=== PATIENT | female | born 1945 | race Caucasian/White ===

== ENCOUNTER 2018-01-20 17:47 | Emergency (ER) | payer MEDICARE, BC ==
[2018-01-20] MEDS ORDERED: Cephalexin CAP* 500 MG PO ONE (20:11)
[2018-01-20 20:14] VITALS: BP 121/58
--- NOTE | 2018-01-20 20:18 | UC ---
Hand/Wrist HPI - HPI Summary HPI Summary: started with pain, swelling and redness on left index finger several days ago. States she has been soakingit in epson salts which initially helped but painand redness worsened the last day. She has a groove on fingernail with a ilya in nailbed for the past year, and occasionally sees some discharge oozing out of it. Denies chills, fever or malaise - History Of Current Complaint Chief Complaint: UCUpperExtremity Stated Complaint: FINGER SORENESS Time Seen by Provider: 01/20/18 19:56 Hx Obtained From: Patient ?: No Onset/Duration: Sudden Onset, Lasting Days Severity Initially: Mild Severity Currently: Moderate Pain Intensity: 5 Character Of Pain: Throbbing Aggravating Factor(s): Movement Alleviating Factor(s): Elevation, Heat Associated Signs And Symptoms: Positive: Swelling, Redness - Allergies/Home Medications Allergies/Adverse Reactions: Allergies Allergy/AdvReac Type Severity Reaction Status Date / Time No Known Allergies Allergy Verified 01/20/18 19:43 PMH/Surg Hx/FS Hx/Imm Hx Previously Healthy: Yes - Surgical History Surgical History: Yes Surgery Procedure, Year, and Place: Right shoulder - Family History Known Family History: Positive: None - Social History Alcohol Use: Occasionally Substance Use Type: None Smoking Status (MU): Never Smoked Tobacco Review of Systems Constitutional: Negative Musculoskeletal: Arthralgia, Edema, Myalgia All Other Systems Reviewed And Are Negative: Yes Physical Exam Triage Information Reviewed: Yes Appearance: Well-Appearing, No Pain Distress, Well-Nourished Vital Signs: Initial Vital Signs Temp 97.9 F 01/20/18 19:40 Pulse 70 01/20/18 19:40 Resp 18 01/20/18 19:40 BP 151/69 01/20/18 19:40 Pulse Ox 98 01/20/18 19:40 Vital Signs Reviewed: Yes Eyes: Positive: Conjunctiva Clear ENT: Positive: Hearing grossly normal Neck: Positive: Supple Respiratory: Positive: Chest non-tender Cardiovascular: Positive: Pulses Normal, Brisk Capillary Refill Musculoskeletal: Positive: Strength Intact, ROM Intact, Other: - edema, erythema on distal aspect of left index finger, with limitation on flexion. Longitudinal groove from ungueal bed, No discharge from ungueal bed, no fluctuation Hand/Wrist Course/Dx - Course Course Of Treatment: start antibiotics as prescribed, continue warm compresses, f/u with PMD in 1 week - Differential Dx/Diagnosis Provider Diagnoses: Cellulitis index finger Discharge - Sign-Out/Discharge Documenting (check all that apply): Patient Departure, Post-Discharge Follow Up - Discharge Plan Condition: Good Disposition: HOME Prescriptions: Cephalexin CAP* [Keflex CAP*] 500 mg PO TID #21 cap Patient Education Materials: Cephalexin (By mouth), Cellulitis (ED) Referrals: Rubin Lees MD [Primary Care Provider] - - Billing Disposition and Condition Condition: GOOD Disposition: Home
== END 2018-01-20 20:22 | disposition home or self-care (01) ==
LOC: UCEAST 17:47
DX: L03.012 Cellulitis of left finger (principal)
CPT/HCPCS: 99212; A9270-GY; G0463